=== PATIENT | female | born 1990 | race Two or more races ===

== ENCOUNTER 2017-01-07 10:22 | Emergency (ER) | payer OTHER ==
[2017-01-07 11:16] VITALS: BMI 35.4
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
--- NOTE | 2017-01-07 12:36 | PDOC ---
*Physical Exam - Vital Signs Last Vital Signs Temp Pulse Resp BP Pulse Ox 97 F L 75 18 133/70 99 01/07/17 11:13 01/07/17 11:13 01/07/17 11:13 01/07/17 11:13 01/07/17 11:13 - Physical Exam Comments: 01/07/17 12:36 MIDLEVEL NOTE Pt seen by Midlevel Provider under my direct supervision. Pt interviewed and examined. Ancillary studies reviewed. I agree with plan as outlined by Midlevel Provider. 01/07/17 16:15 CT scan of the head without-no acute intracranial pathology *DC/Admit/Observation/Transfer Diagnosis at time of Disposition: Head injury Qualifiers: Encounter type: initial encounter Qualified Code(s): S09.90XA - Unspecified injury of head, initial encounter Hearing decreased Qualifiers: Laterality: bilateral Qualified Code(s): H91.93 - Unspecified hearing loss, bilateral - Discharge Dispostion Disposition: HOME - Referrals Referrals: Kenyon Valverde MD [Primary Care Provider] - Moe Gonzalez MD [Staff Physician] - - Patient Instructions Printed Discharge Instructions: DI for Closed Head Injury Additional Instructions: Return to the nearest ER if worsening headache, nausea, vomiting, unsteady or worsening symptoms. You can take Tylenol every 4 hours for headache. You can take Sudafed as directed on the box for your symptoms regarding the ears and runny nose Follow-up with the ENT doctor this week
[2017-01-07 16:12] VITALS: BP 122/77; PULSE 80; TEMP 98.6
== END 2017-01-07 16:13 | disposition home or self-care (01) ==
LOC: JER 10:22
DX: S09.8XXA Other specified injuries of head, initial encounter (principal); H91.93 Unspecified hearing loss, bilateral; V48.6XXA Car passenger injured in noncollision transport accident in traffic accident, initial encounter; Y92.414 Local residential or business street as the place of occurrence of the external cause; Y93.89 Activity, other specified
CPT/HCPCS: 70450-TC; 84703; 99283-25

== ENCOUNTER 2019-05-07 10:55 | Emergency (ER) | payer SELFPAY ==
[2019-05-07 11:03] VITALS: TEMP 98.1; BMI 38.4
--- NOTE | 2019-05-07 11:23 | PDOC ---
History of Present Illness - General Chief Complaint: Pain Stated Complaint: UPPER ABD PAIN/ DIARRHEA Time Seen by Provider: 05/07/19 11:22 History Source: Patient - History of Present Illness Timing/Duration: reports: constant Abdominal Pain Onset Location: reports: epigastric Past History - Past Medical History Allergies/Adverse Reactions: Allergies Allergy/AdvReac Type Severity Reaction Status Date / Time No Known Allergies Allergy Verified 05/07/19 11:03 Home Medications: Ambulatory Orders Famotidine [Pepcid] 20 mg PO BID #28 tablet 05/07/19 Mag Hydrox/Al Hydrox/Simeth [Mylanta Suspension -] 30 ml PO Q6H #1 bottle COPD: No - Surgical History Abdominal Surgery: Yes - Suicide/Smoking/Psychosocial Hx Smoking History: Never smoked Have you smoked in the past 12 months: No Information on smoking cessation initiated: No Hx Alcohol Use: Yes (occasional) Drug/Substance Use Hx: No Substance Use Type: None Review of Systems - Review of Systems Constitutional: No: Chills, Fever, Malaise, Weakness ABD/GI: Yes: Diarrhea, Nausea. No: Blood Streaked Bowels, Constipated, Rectal Bleeding, Vomiting : No: Dysuria, Flank Pain, Hematuria *Physical Exam - Vital Signs Last Vital Signs Temp Pulse Resp BP Pulse Ox 98.1 F 70 18 137/78 100 05/07/19 11:01 05/07/19 11:01 05/07/19 11:01 05/07/19 11:01 05/07/19 11:01 - Physical Exam General Appearance: Yes: Appropriately Dressed. No: Apparent Distress HEENT: positive: Normal Voice Neck: positive: Supple Respiratory/Chest: negative: Respiratory Distress Gastrointestinal/Abdominal: positive: Tender (sig ttp to epigastrium, NT over RUQ/RLQ), Soft. negative: Distended, Guarding, Rebound Musculoskeletal: negative: CVA Tenderness Integumentary: positive: Dry, Warm Neurologic: positive: Fully Oriented, Alert, Normal Mood/Affect ED Treatment Course - LABORATORY CBC & Chemistry Diagram: 05/07/19 11:50 05/07/19 11:50 Medical Decision Making - Medical Decision Making 05/07/19 11:22 28 yo morbidly obesed female, h/o pre-DM, here w/ abd pain w/ diarrhea. Pt states for the past week, has had persistent watery, NB diarrhea w/ "squeezing epigastric pain". +nausea, no vomiting, weakness, f/c. No recent travel, sick contacts, unusual food or abx use. No h/o similar episode. See exam Gastroenteritis vs gastritis, unlikely biliary, pancreatitis or appy -trial of GI cocktail -IVF -labs, reassess 05/07/19 13:16 Labs unremarkable. On reassessment, patient reports feeling better at this time and declines further pain medication here. Will dc with small dose of Pepcid, Maalox and have patient follow up with PMD as needed *DC/Admit/Observation/Transfer Diagnosis at time of Disposition: Abdominal discomfort, epigastric Diarrhea Qualifiers: Diarrhea type: unspecified type Qualified Code(s): R19.7 - Diarrhea, unspecified - Discharge Dispostion Disposition: HOME Condition at time of disposition: Improved - Prescriptions Prescriptions: Famotidine [Pepcid] 20 mg PO BID #28 tablet Mag Hydrox/Al Hydrox/Simeth [Mylanta Suspension -] 30 ml PO Q6H #1 bottle - Referrals - Patient Instructions Printed Discharge Instructions: DI for Epigastric Pain, Diarrhea Additional Instructions: The cause of your symptoms are unclear at this time and may be due to gastritis or gastroenteritis Please take medications as directed and maintain adequate hydration to prevent dehydration as discussed. Please refrain from spicy food and caffeine. If symptoms persist and/or recur, please discuss with your PMD - Post Discharge Activity
[2019-05-07] MEDS ORDERED: MAG HYDROX/AL HYDROX/SIMETH -MYLANTA- ORAL SUSPENSION PO ONE (11:26)
[2019-05-07] MEDS ORDERED: FAMOTIDINE 20 MG/50 ML IVPB 20 MG/50 ML MG IVPB ONE ×2 (11:26→11:34)
[2019-05-07] MEDS ORDERED: SODIUM CHLORIDE 1,000 ML IV STA (11:26)
[2019-05-07] MEDS ORDERED: ONDANSETRON 4 MG/2 ML VIAL IVPUSH ONE (11:27)
[2019-05-07] MEDS ORDERED: ONDANSETRON 4 MG/2 ML VIAL ONE (11:33)
[2019-05-07] MEDS ORDERED: MAG HYDROX/AL HYDROX/SIMETH 30 ML UNIT-DOSE CUP ONE (11:33)
[2019-05-07 12:20] LABS: BASO % 0.4 % (0-2.0); EOS % 4.5 % (0-4.5); HEMATOCRIT 36.1 % (32.4-45.2); HEMOGLOBIN 11.9 GM/dL (10.7-15.3); LYMPH % 36.4 % (8-40); MCH 27.7 pg (25.7-33.7); MCHC 33.1 g/dl (32.0-36.0); MEAN CELL VOLUME 83.7 fl (80-96); MEAN PLT VOLUME 8.9 fl (7.5-11.1); MONO % 11.5 % (3.8-10.2); NEUT % 47.2 % (42.8-82.8); PLATELET COUNT 317 K/MM3 (134-434); RBC 4.31 M/mm3 (3.60-5.2); RDW 13.8 % (11.6-15.6); WHITE BLOOD COUNT 4.6 K/mm3 (4.0-10.0)
[2019-05-07 12:25] LABS: HCG,QUALITATIVE URINE Negative
[2019-05-07 12:30] LABS: URINE APPEARANCE CLEAR; URINE BILIRUBIN NEGATIVE (NEGATIVE); URINE COLOR YELLOW; URINE GLUCOSE (UA) NEGATIVE (NEGATIVE); URINE KETONE NEGATIVE (NEGATIVE); URINE LEUK ESTERASE NEGATIVE (NEGATIVE); URINE NITRITE NEGATIVE (NEGATIVE); URINE PROTEIN NEGATIVE (NEGATIVE); URINE UROBILINOGEN 0.2 mg/dL (0.2-1.0)
[2019-05-07 12:53] LABS: ALBUMIN 3.3 g/dl (3.4-5.0); BILIRUBIN,TOTAL 0.4 mg/dL (0.2-1); BLOOD UREA NITROGEN 13.6 mg/dL (7-18); CALCIUM 8.7 mg/dL (8.5-10.1); CREATININE 0.8 mg/dL (0.55-1.3); TOT PROT 7.1 g/dl (6.4-8.2)
[2019-05-07 12:54] LABS: POTASSIUM 5.1 mmol/L (3.5-5.1)
[2019-05-07 13:28] VITALS: BP 114/74; PULSE 64
== END 2019-05-07 13:28 | disposition home or self-care (01) ==
LOC: JER 10:55
PROC: 3E033GC Introduction of Other Therapeutic Substance into Peripheral Vein, Percutaneous Approach (ICD-10-PCS; principal; 2019-05-07)
PROC: 3E0337Z Introduction of Electrolytic and Water Balance Substance into Peripheral Vein, Percutaneous Approach (ICD-10-PCS; 2019-05-07)
DX: R10.13 Epigastric pain (principal); R19.7 Diarrhea, unspecified
CPT/HCPCS: 36415; 80053; 81003; 83690; 84703; 85025; 99282-25; J7030